=== PATIENT | female | born 1990 | race African-American/Black ===

== ENCOUNTER 2018-02-20 19:11 | Emergency (ER) | payer OTHER ==
[2018-02-20 20:23] LABS: Urine Blood NEGATIVE (NEG); Urine Glucose NEGATIVE (NEG); Urine Protein NEGATIVE (NEG); Urine pH 7.5 (5.0-7.0)
[2018-02-20] MEDS ORDERED: KETOROLAC 30 MG/ML INJ ONE (20:31)
[2018-02-20] MEDS ORDERED: METOCLOPRAMIDE 10 MG/2mL INJ ONE (20:31)
[2018-02-20] MEDS ORDERED: NA CHLORIDE 0.9% 1,000 ML ONE (20:32)
[2018-02-20] MEDS ORDERED: DIPHENHYDRAMINE 50 MG/ML VIAL ONE (20:38)
--- NOTE | 2018-02-20 21:19 | EDPHYS ---
Physician Documentation [facility] Name: Jaguar Waite Age: 27 yrs Sex: Female : 1990 Arrival Date: 02/20/2018 Time: 19:22 Bed 20 Private MD: ED Physician Gaurav Phillips HPI: 02/20 21:16 This 27 yrs old Black Female presents to ER via Ambulatory with complaints of Headache, jr8 Nausea/Vomiting. 21:16 The patient complains of pain to the right zoroastrianism and left zoroastrianism. The patient jr8 describes the headache as throbbing. Onset: The symptoms/episode began/occurred acutely, today. Associated signs and symptoms: Pertinent positives: nausea, Photophobia. Severity of symptoms: At its worst the pain was moderate, in the emergency department the pain is unchanged. Headache History: The patient has had previous headaches and this one is more severe than previous episodes. The symptoms are alleviated by nothing. the symptoms are aggravated by lights, movement, noise, stress. The patient has experienced similar episodes in the past, a few times. The patient has not recently seen a physician. 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 - Social history:: Smoking status: Patient/guardian denies using tobacco. - Ebola Screening: : Patient denies travel to an Ebola-affected area in the 21 days before illness onset. ROS: 21:16 Eyes: Negative for injury, pain, redness, and discharge, ENT: Negative for injury, jr8 pain, and discharge, Neck: Negative for injury, pain, and swelling, Cardiovascular: Negative for chest pain, palpitations, and edema, Respiratory: Negative for shortness of breath, cough, wheezing, and pleuritic chest pain, Abdomen/GI: Negative for abdominal pain, nausea, vomiting, diarrhea, and constipation, Back: Negative for injury and pain, MS/Extremity: Negative for injury and deformity, Skin: Negative for injury, rash, and discoloration. 21:16 Neuro: Positive for headache, Negative for altered mental status, dizziness, gait disturbance, hearing loss, loss of consciousness, numbness, seizure activity, speech changes, syncope, near syncope, tingling, tinnitus, tremor, visual changes, weakness. Exam: 21:16 Eyes: Pupils equal round and reactive to light, extra-ocular motions intact. Lids and jr8 lashes normal. Conjunctiva and sclera are non-icteric and not injected. Cornea within normal limits. Periorbital areas with no swelling, redness, or edema. ENT: Nares patent. No nasal discharge, no septal abnormalities noted. Tympanic membranes are normal and external auditory canals are clear. Oropharynx with no redness, swelling, or masses, exudates, or evidence of obstruction, uvula midline. Mucous membranes moist. Neck: Trachea midline, no thyromegaly or masses palpated, and no cervical lymphadenopathy. Supple, full range of motion without nuchal rigidity, or vertebral point tenderness. No Meningismus. Cardiovascular: Regular rate and rhythm with a normal S1 and S2. No gallops, murmurs, or rubs. Normal PMI, no JVD. No pulse deficits. Respiratory: Lungs have equal breath sounds bilaterally, clear to auscultation and percussion. No rales, rhonchi or wheezes noted. No increased work of breathing, no retractions or nasal flaring. Abdomen/GI: Soft, non-tender, with normal bowel sounds. No distension or tympany. No guarding or rebound. No evidence of tenderness throughout. Back: No spinal tenderness. No costovertebral tenderness. Full range of motion. Skin: Warm, dry with normal turgor. Normal color with no rashes, no lesions, and no evidence of cellulitis. MS/ Extremity: Pulses equal, no cyanosis. Neurovascular intact. Full, normal range of motion. Neuro: Awake and alert, GCS 15, oriented to person, place, time, and situation. Cranial nerves II-XII grossly intact. Motor strength 5/5 in all extremities. Sensory grossly intact. Cerebellar exam normal. Normal gait. Vital Signs: 19:36 BP 131 / 80; Pulse 80; Resp 18; Temp 98.0; Pulse Ox 100% on R/A; Weight 103.42 kg (R); aj1 Height 5 ft. 8 in. (172.72 cm) (R); Pain 10/10; 19:58 BP 116 / 68; Pulse 86; Resp 16; Pulse Ox 100% on R/A; lp1 20:48 BP 122 / 70; Pulse 98; Resp 16; Pulse Ox 100% on R/A; mt 19:36 Body Mass Index 34.67 (103.42 kg, 172.72 cm) aj1 MDM: 19:41 Patient medically screened. jr8 21:16 Data reviewed: vital signs, nurses notes, and as a result, I will discharge patient. jr8 Data interpreted: Pulse oximetry: on room air is 100 %. Interpretation: normal. Counseling: I had a detailed discussion with the patient and/or guardian regarding: the historical points, exam findings, and any diagnostic results supporting the discharge/admit diagnosis, the need for outpatient follow up, a family practitioner, to return to the emergency department if symptoms worsen or persist or if there are any questions or concerns that arise at home. Response to treatment: the patient's symptoms have resolved after treatment. 02/20 19:53 Order name: Urine Dipstick--Ancillary (enter results); Complete Time: 20:28 fl 02/20 19:53 Order name: Urine --Ancillary (enter results); Complete Time: 20:28 fl 02/20 20:06 Order name: IV; Complete Time: 20:23 jr8 Administered Medications: 20:43 Drug: Benadryl 25 mg Route: IVP; Site: right antecubital; lp1 21:40 Follow up: Response: Marked relief of symptoms lp1 20:43 Drug: Reglan 10 mg Route: IVP; Site: right antecubital; lp1 21:40 Follow up: Response: Marked relief of symptoms lp1 20:43 Drug: TORadol 30 mg Route: IVP; Site: right antecubital; lp1 21:40 Follow up: Response: Marked relief of symptoms lp1 20:43 Drug: NS 0.9% 1000 ml Route: IV; Rate: 1000 ml; Site: right antecubital; lp1 21:40 Follow up: IV Status: Completed infusion; IV Intake: 1000ml lp1 Disposition: 23:42 Co-signature as Attending Physician, Gaurav Phillips MD. rn Disposition: 02/20/18 21:18 Discharged to Home. Impression: Migraine. - Condition is Stable. - Discharge Instructions: Migraine Headache. - Medication Reconciliation Form, Thank You Letter, Antibiotic Education, Prescription Opioid Use form. - Follow up: Private Physician; When: 2 - 3 days; Reason: Recheck today's complaints, Continuance of care, Re-evaluation by your physician. - Problem is new. - Symptoms have improved. Signatures: Dispatcher [employer] EDReema Sanches RN RN aj1 Gaurav Phillips MD MD rn Pena, Laura, RN RN lp1 Cornelio Whitt PA PA jr8 Corrections: (The following items were deleted from the chart) 21:41 21:18 02/20/2018 21:18 Discharged to Home. Impression: Migraine. Condition is Stable. lp1 Forms are Medication Reconciliation Form, Thank You Letter, Antibiotic Education, Prescription Opioid Use. Follow up: Private Physician; When: 2 - 3 days; Reason: Recheck today's complaints, Continuance of care, Re-evaluation by your physician. Problem is new. Symptoms have improved. jr8
--- NOTE | 2018-02-20 21:19 | ER ---
Nurse's Notes [facility] Name: Jaguar Waite Age: 27 yrs Sex: Female : 1990 Arrival Date: 02/20/2018 Time: 19:22 Bed 20 Private MD: Diagnosis: Migraine Presentation: 02/20 19:32 Presenting complaint: Patient states: She woke up at 0930 this morning with a headache, aj1 she took some tried to take Tylenol for the pain, but ended up vomiting it up. Since then she has been unable to hold anything down. Patient denies recent head injury. Denies dizziness, blurred vision, LOC. Reports fatigue. Transition of care: patient was not received from another setting of care. Onset of symptoms was February 20, 2018 at 09:30. Risk Assessment: Do you want to hurt yourself or someone else? Patient reports no desire to harm self or others. Initial Sepsis Screen: Does the patient meet any 2 criteria? No. Patient's initial sepsis screen is negative. Does the patient have a suspected source of infection? No. Patient's initial sepsis screen is negative. Care prior to arrival: None. 19:32 Method Of Arrival: Ambulatory aj1 19:32 Acuity: LILIAN 3 aj1 Triage Assessment: 19:36 Headache History: The patient has had previous headaches and this one is more severe aj1 than previous episodes. General: Appears in no apparent distress. uncomfortable, Behavior is calm, cooperative, appropriate for age. Pain: Complains of pain in right scientology and left scientology Pain does not radiate. Pain currently is 10 out of 10 on a pain scale. Quality of pain is described as throbbing, Pain began at 0930 this morning Is continuous, Alleviated by nothing. Aggravated by nothing Also complains of nausea. Neuro: Level of Consciousness is awake, alert, obeys commands, Oriented to person, place, time, situation, Moves all extremities. Full function Gait is steady, Speech is normal, Facial symmetry appears normal, Reports headache Denies blurred vision dizziness, photophobia. Cardiovascular: Patient's skin is warm and dry. Respiratory: Airway is patent Respiratory effort is even, unlabored, Respiratory pattern is regular, symmetrical. 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 - Social history:: Smoking status: Patient/guardian denies using tobacco. - Ebola Screening: : Patient denies travel to an Ebola-affected area in the 21 days before illness onset. Screenin:53 Abuse screen: Denies threats or abuse. Denies injuries from another. Nutritional lp1 screening: No deficits noted. Tuberculosis screening: No symptoms or risk factors identified. Fall Risk None identified. Assessment: 19:58 General: Appears uncomfortable, Behavior is appropriate for age. Pain: Complains of lp1 pain in left scientology and right scientology Pain currently is 8 out of 10 on a pain scale. Quality of pain is described as pressure, Pain began gradually. Neuro: Level of Consciousness is awake, alert, obeys commands, Oriented to person, place, time, situation, Gait is steady, Pupils are PERRLA, Reports dizziness, headache photophobia. Cardiovascular: Patient's skin is warm and dry. Respiratory: Respiratory effort is even, unlabored. GI: Reports intolerance of fluids, intolerance of food, nausea, vomiting. : No signs and/or symptoms were reported regarding the genitourinary system. EENT: No signs and/or symptoms were reported regarding the EENT system. Derm: Skin is intact, Skin is dry, Skin is normal. Musculoskeletal: Circulation, motion, and sensation intact. 20:45 Reassessment: Patient able to tolerate eating at this time. lp1 21:39 Reassessment: Patient is alert, oriented x 3, equal unlabored respirations, skin lp1 warm/dry/pink. Patient states feeling better. Patient states symptoms have improved. Vital Signs: 19:36 BP 131 / 80; Pulse 80; Resp 18; Temp 98.0; Pulse Ox 100% on R/A; Weight 103.42 kg (R); aj1 Height 5 ft. 8 in. (172.72 cm) (R); Pain 10/10; 19:58 BP 116 / 68; Pulse 86; Resp 16; Pulse Ox 100% on R/A; lp1 20:48 BP 122 / 70; Pulse 98; Resp 16; Pulse Ox 100% on R/A; mt 19:36 Body Mass Index 34.67 (103.42 kg, 172.72 cm) aj1 ED Course: 19:22 Patient arrived in ED. es 19:35 Triage completed. aj1 19:36 Arm band placed on Patient placed in an exam room. aj1 19:41 Cornelio Whitt PA is PHCP. jr8 19:41 Gaurav Phillips MD is Attending Physician. jr8 19:52 Alethea Ortega, RN is Primary Nurse. lp1 19:53 Patient has correct armband on for positive identification. lp1 20:28 Inserted saline lock: 20 gauge in right antecubital area, using aseptic technique. mt Blood collected. 21:39 No provider procedures requiring assistance completed. IV discontinued, No lp1 redness/swelling at site. Pressure dressing applied. Administered Medications: 20:43 Drug: Benadryl 25 mg Route: IVP; Site: right antecubital; lp1 21:40 Follow up: Response: Marked relief of symptoms lp1 20:43 Drug: Reglan 10 mg Route: IVP; Site: right antecubital; lp1 21:40 Follow up: Response: Marked relief of symptoms lp1 20:43 Drug: TORadol 30 mg Route: IVP; Site: right antecubital; lp1 21:40 Follow up: Response: Marked relief of symptoms lp1 20:43 Drug: NS 0.9% 1000 ml Route: IV; Rate: 1000 ml; Site: right antecubital; lp1 21:40 Follow up: IV Status: Completed infusion; IV Intake: 1000ml lp1 Intake: 21:40 IV: 1000ml; Total: 1000ml. lp1 Outcome: 21:18 Discharge ordered by . jr8 21:40 Discharged to home ambulatory, with friend. lp1 21:40 Condition: good 21:40 Discharge instructions given to patient, family, Instructed on discharge instructions, follow up and referral plans. Demonstrated understanding of instructions, follow-up care. 21:41 Patient left the ED. lp1 Signatures: Reema Waite, RN RN aj1 Miriam Gomez Laura, AMAN RN lp1 Cornelio Whitt PA PA [address] Vandana Garcia tn
== END 2018-02-20 21:41 | disposition home or self-care (01) ==
LOC: ER 19:11
DX: G43.909 Migraine, unspecified, not intractable, without status migrainosus (principal); D64.9 Anemia, unspecified
CPT/HCPCS: 81003; 81025; 96361; 96374; 96375; 99283; J2765; J7030